=== PATIENT | male | born 1960 | race Caucasian/White ===

== ENCOUNTER 2018-02-22 16:46 | Inpatient (IN) | payer MEDICAID, OTHER ==
[~2018-02-22] VITALS: Ht 172.7 cm; Wt 106.6 kg
[2018-02-22 16:53] VITALS: BP 108/80
--- NOTE | 2018-02-22 17:00 | NUR ---
PATIENT PRESENTS TO ED WITH SUIDCIDAL IDEATION . PT STATES HE STARTED FEELING LIKE THIS 2 DAYS AGO, HAD A SPRAY APPLICATOR READY TO CUT HIMSELF BUT HE STOPPED. BROUGHT HIMSELF TO ER FOR HELP. DENIES N/V/D; SKIN IS PINK/WARM/DRY; AAOX4 WITH EVEN AND STEADY GAIT; LUNGS CLEAR BL; HR EVEN AND REGULAR; PT DENIES ANY FEVER, CP, SOB, OR COUGH AT THIS TIME; PATIENT STATES PAIN OF 0/10 AT THIS TIME; VSS; PATIENT POSITIONED FOR COMFORT; HOB ELEVATED; BEDRAILS UP X1; BED DOWN. ER MD MADE AWARE OF PT STATUS.
[2018-02-22] MEDS ORDERED: NACL 0.9% 1,000 ML IV ONE (17:10)
[2018-02-22 17:32] LABS: BASOPHILS # (AUTO) 0.1 K/uL (0.00-0.22); BASOPHILS % (AUTO) 0.8 % (0.0-2.0); EOSINOPHILS # (AUTO) 0.2 K/uL (0-0.4); EOSINOPHILS % (AUTO) 2.3 % (0.0-4.0); HEMATOCRIT 41.2 % (36-52); HEMOGLOBIN 13.9 g/dL (12.0-18.0); LYMPHOCYTES # (AUTO) 2.4 K/uL (2.0-11.5); LYMPHOCYTES % (AUTO) 30.1 % (20.5-51.1); MEAN CORPUSCULAR HEMOGLOBIN 30 pg (27-31); MEAN CORPUSCULAR HGB CONC 34 g/dL (33-37); MEAN CORPUSCULAR VOLUME 89.2 fL (80-94); MONOCYTES # (AUTO) 0.7 K/uL (0.8-1.0); MONOCYTES % (AUTO) 8.3 % (1.7-9.3); NEUTROPHILS # (AUTO) 4.7 K/uL (1.8-7.7); NEUTROPHILS % (AUTO) 58.5 % (42.2-75.2); PLATELET COUNT (AUTO) 181 K/uL (140-450); RED BLOOD CELL COUNT(AUTO) 4.61 MIL/uL (4.20-6.10); WHITE BLOOD COUNT (AUTO) 8.1 K/uL (4.8-10.8)
--- NOTE | 2018-02-22 17:40 | NUR ---
PATIENT ATE 90% OF DINNER TRAY. PATIENT IS CALM, NOT DISPLAYING SUICIDAL BEHAVIOR AT THIS TIME.
[2018-02-22 17:41] LABS: ANION GAP 13.9 (8-16); CARBON DIOXIDE 27.3 mmol/L (21-32); CHLORIDE 103 mmol/L (98-107); CREATININE 0.9 mg/dL (0.7-1.3); GFR ARICAN-AMERICAN 112 mL/min (>90); GLUCOSE 99 mg/dL (74-106); POTASSIUM 4.2 mmol/L (3.5-5.1); SODIUM SERUM 140 mmol/L (136-145); UREA NITROGEN, BLOOD 13 mg/dL (7-18)
[2018-02-22 17:48] LABS: ALBUMIN 3.4 g/dL (3.4-5.0); ASPARTATE AMINOTRANSFERASE 19 U/L (15-37); TOTAL BILIRUBIN 0.2 mg/dL (0.0-1.0)
[2018-02-22 17:51] LABS: ACETAMINOPHEN < 0.5 ug/ml (10-30); SALICYLATE < 2.8 mg/dL (2.8-20.0)
[2018-02-22 17:57] LABS: ACETONE, SERUM NEGATIVE (NEGATIVE)
[2018-02-22] MEDS ORDERED: ACETAMINOPHEN 325 MG TAB PO PRN (19:00)
[2018-02-22] MEDS ORDERED: ONDANSETRON 4 MG/2 ML VIAL IVP PRN (19:00)
[2018-02-22] MEDS ORDERED: LORazepam 2 MG/ML VIAL IVP PRN (19:00)
[2018-02-22] MEDS ORDERED: HYDROcodone/APAP 5/325 MG 1 TAB TAB PO PRN (19:00)
[2018-02-22] MEDS ORDERED: MORPHINE SULFATE 4 MG/ML SYR IVP PRN (19:00)
--- NOTE | 2018-02-22 19:16 | NUR ---
Patient will be admitted to care of DR. SONG. Admited to MED SURG. Will go to room 124 A. Belongings list completed. Report to JELENA.
--- NOTE | 2018-02-22 19:16 | NUR ---
PATIENT TAKEN TO THE FLOOR BY JELENA COURTNEY
[2018-02-22 19:25] VITALS: BP 115/79
--- NOTE | 2018-02-22 19:25 | NUR ---
ADMITTED AND 57M FROM ER . CAME BY WHEELCHAIR . AWAKE,ALERT AND ORIENTED X4. CAME DUE TO HEARING VOICES. HAD HX OF SUICIDAL IDEATION . PT IS AMBULATORY. ON MED -SURG. WITH HL ON THE LT AC#20. CLEAR AND PATENT. SKIN INTACT. ORIENTED TO HOSPITAL ROUTINES. BED ON LOW POSITION . CALL LIGHT AND URINAL PACED WITHIN EASY REACH. FREQUENT ROUNDS NEEDED FOR SAFETY . PLAN OF CARE DISCUSSED AND VERBALIZED UNDERSTANDING. SPECIMEN COLLECTED FOR MRSA NARES. WILL FOLLOW UP ADMIT ORDERS. WILL CONTINUE TO MONITOR.
--- NOTE | 2018-02-22 20:00 | NUR ---
ASKED PT IF HE HAS PLAN TO HURT HIMSELF , HE SAID NOT AT THIS TIME. AND HE SAID HIS GOAL UPON DISCHARGE IS TO TAKE ALL HIS MEDICATIONS ON TIME.
[2018-02-22] MEDS ORDERED: QUET400T PO (20:29)
[2018-02-22] MEDS ORDERED: CITA40TA13 PO (20:29)
[2018-02-22] MEDS ORDERED: BUS5 PO (20:29)
[2018-02-22] MEDS ORDERED: METO25TA PO (20:29)
[2018-02-22] MEDS ORDERED: ATOR40TA PO (20:29)
[2018-02-22] MEDS ORDERED: ASPI-1677 PO (20:29)
--- NOTE | 2018-02-22 21:20 | NUR ---
PT WANTS TO TAKE HIS MEDICATIONS THAT HE TAKES AT HOME. PAGED Terry FELIZ CALLED BACK AND HE SAID OK TO CONTINUE ALL HOME MEDICATIONS. DC THE PREVIOUS SEROQUEL ORDER AND FOLLOW WHAT PT TAKES AT HOME.
[2018-02-22 21:51] LABS: APPEARANCE,URINE CLEAR (CLEAR); BILIRUBIN,URINE NEGATIVE (NEGATIVE); BLOOD, URINE NEGATIVE (NEGATIVE); LEUKOCYTE ESTERASE ,URINE NEGATIVE (NEGATIVE); NITRITE, URINE NEGATIVE (NEGATIVE); UGLUCOSE NEGATIVE (NEGATIVE)
[2018-02-22 21:52] LABS: COLOR,URINE STRAW (YELLOW)
[2018-02-22] MEDS ORDERED: busPIRone 5 MG TAB PO SCH (22:00)
[2018-02-22] MEDS ORDERED: QUEtiapine FUMARATE 100 MG TAB PO SCH (22:00)
--- NOTE | 2018-02-22 22:06 | NUR ---
At this time pt is not a considered a psych pt. , clarified with charge nurse Ann BOWLES. advised to give Call Center a call back when pt becomes a psych pt.
[2018-02-22 22:59] LABS: BARBITURATE, URINE NEG. ng/ml (NEG <=200); BENZODIAZEPINE, URINE NEG. ng/mL (NEG <=200); CANNABINOID, URINE NEG. ng/mL (NEG <=50); COCAINE, URINE NEG. ng/mL (NEG <=300); OPIATE, URINE NEG. ng/mL (NEG <=2000); PHENCYCLIDINE SCREEN,URINE NEG. ng/mL (NEG <=25)
[2018-02-23 00:10] VITALS: BP 131/88
--- NOTE | 2018-02-23 00:30 | NUR ---
AMBULATED TO THE BATHROOM AND VOIDED. NO C/O ANY DISCOMFORT NOTED.
--- NOTE | 2018-02-23 00:45 | NUR ---
SCD MACHINE NOT NEEDED FOR PT IS AMBULATORY.
--- NOTE | 2018-02-23 02:30 | NUR ---
MADE ROUNDS. PT IS ASLEEP. NO S/S FO ANY DISCOMFORT NOTED. WILL CONTINUE TO MONITOR.
--- NOTE | 2018-02-23 03:30 | NUR ---
MADE ROUNDS. PT IS ASLEEP. NO S/S OF ANY DISCOMFORT NOTED. WILL CONTINUE TO MONITOR.
--- NOTE | 2018-02-23 05:20 | NUR ---
SITTING UP ON SIDE OF BED. BLOOD JUST DRAWN . WILL FOLLOW UP RESULTS.
[2018-02-23 05:49] LABS: BASOPHILS # (AUTO) 0.1 K/uL (0.00-0.22); BASOPHILS % (AUTO) 0.8 % (0.0-2.0); EOSINOPHILS # (AUTO) 0.3 K/uL (0-0.4); EOSINOPHILS % (AUTO) 3.7 % (0.0-4.0); HEMATOCRIT 42.9 % (36-52); HEMOGLOBIN 14.4 g/dL (12.0-18.0); LYMPHOCYTES # (AUTO) 2.4 K/uL (2.0-11.5); LYMPHOCYTES % (AUTO) 34.4 % (20.5-51.1); MEAN CORPUSCULAR HEMOGLOBIN 30 pg (27-31); MEAN CORPUSCULAR HGB CONC 34 g/dL (33-37); MEAN CORPUSCULAR VOLUME 90.4 fL (80-94); MONOCYTES # (AUTO) 0.6 K/uL (0.8-1.0); MONOCYTES % (AUTO) 8.5 % (1.7-9.3); NEUTROPHILS # (AUTO) 3.6 K/uL (1.8-7.7); NEUTROPHILS % (AUTO) 52.6 % (42.2-75.2); PLATELET COUNT (AUTO) 184 K/uL (140-450); RED BLOOD CELL COUNT(AUTO) 4.74 MIL/uL (4.20-6.10); RED CELL DISTRIBUTION WIDTH 14.4 % (11.6-13.7); WHITE BLOOD COUNT (AUTO) 6.9 K/uL (4.8-10.8)
[2018-02-23 06:05] LABS: ANION GAP 10.3 (8-16); CARBON DIOXIDE 30.2 mmol/L (21-32); POTASSIUM 4.5 mmol/L (3.5-5.1)
--- NOTE | 2018-02-23 06:32 | NUR ---
SLEPT WELL DURING THE NIGHT. HAVING COFFEE AT THIS TIME.
--- NOTE | 2018-02-23 07:28 | NUR ---
ENDORSED PT IN STABLE CONDITION TO AM NURSE.
--- NOTE | 2018-02-23 07:30 | NUR ---
RECEIVED PT ON BED AAOX4. NO SOB NOTED. NO C/O PAIN AT THIS TIME. NO SUICIDAL THOUGHTS AND NOT HEARING VOICES AT THIS TIME PER PT. PT IS PLEASANT AND WELL KEMPT IN APPEARANCE. IV TO LT AC PATENT AND INTACT. CHEST CLEAR. ABDOMEN SOFT, BOWEL SOUNDS. NO EDEMA NOTED. INSTRUCTED PT TO CALL FOR ASSISTANCE, CALL LIGHT WITHIN REACH. PT VERBALIZED UNDERSTANDING.
[2018-02-23 08:00] VITALS: BP 116/82
--- NOTE | 2018-02-23 08:44 | NUR ---
PAGED DR. ESPINOSA TO FOLLOW UP WITH PSYCH EVALUATION. PT'S FACE SHEET FAXED TO [facility], CONFIRMATION RECEIVED.
--- NOTE | 2018-02-23 08:59 | NUR ---
PATIENT HAS BEEN SCREENED AND CATEGORIZED MODERATE NUTRITION RISK. PATIENT WILL BE SEEN WITHIN 3-5 DAYS OF ADMISSION. 02/25/18 02/27/[address]
[2018-02-23] MEDS ORDERED: QUEtiapine FUMARATE 25 MG TAB PO SCH (09:00)
[2018-02-23] MEDS: busPIRone 5 MG TAB PO SCH ×2 (09:33→20:36)
[2018-02-23] MEDS: ATORVASTATIN 20 MG TAB PO SCH (09:33)
[2018-02-23] MEDS: CITALOPRAM 20 MG TAB PO SCH (09:33)
[2018-02-23] MEDS: METOPROLOL 50 MG TAB PO SCH ×2 (09:34→20:36)
[2018-02-23] MEDS: ECOTRIN 81 MG TABEC PO SCH (09:34)
--- NOTE | 2018-02-23 12:30 | NUR ---
PT CONSUMED 100% ON BREAKFAST AND LUNCH. FOOD TOLERATED WELL.
[2018-02-23 16:00] VITALS: BP 118/76
--- NOTE | 2018-02-23 16:30 | NUR ---
DR. LAW HERE TO SEE PT.
--- NOTE | 2018-02-23 17:20 | NUR ---
PSYCH EVALUATED PT. 5150 HOLD ISSUED. SITTER PROVIDED.
--- NOTE | 2018-02-23 19:15 | NUR ---
SPOKE WITH ART FROM [facility] CALL SOLANO REGARDING TO LATEST 5150 HOLD ORDER BY PSYCH, FAXED PT'S FACE SHEET AND 5150 HOLD ORDER. FAX CONFIRMATION ATTACHED TO CHART.
--- NOTE | 2018-02-23 19:30 | NUR ---
PT AWAKE. NO SOB NOTED. NO COMPLAINTS MADE, PT IS PLEASANT. NO SUICIDAL THOUGHTS PER PT AT THIS TIME. WITH 1:1 SITTER AT THE BEDSIDE. ENDORSED TO NEXT SHIFT NURSE FOR CONTINUITY OF CARE.
--- NOTE | 2018-02-23 19:30 | NUR ---
ASSUMED CARE OF PATIENT, AWAKE, ALERT AND ORIENTED. MOVE TO 109B AMBULATORY ACCOMPANIED BY SITTER. NO COMPLAINS. CALL LIGHT WITHIN REACH.
--- NOTE | 2018-02-23 20:00 | NUR ---
PLAN OF CARE DISCUSSED WITH PATIENT, VERBALIZED UNDERSTANDING WELL. SITTER 1:1 AT BEDSIDE AT ALL TIMES. CALL LIGHT WITHIN REACH.
--- NOTE | 2018-02-23 20:03 | NUR ---
Packet sent to following facilities ,[facility] ,[facility], [facility] , [facility], and [facility] at this time there are no vacancy , will continue to call for placement.
[2018-02-23] MEDS: QUEtiapine FUMARATE 100 MG TAB PO SCH (20:36)
[2018-02-23 23:31] VITALS: BP 116/78
--- NOTE | 2018-02-23 23:32 | NUR ---
SLEEPING WELL. NO COMPLAINS. CALL LIGHT WITHIN REACH. VITAL SIGNS STABLE. AFEBRILE.
--- NOTE | 2018-02-24 02:11 | NUR ---
There are still no vacancy , will continue to call facilities for placement thru the shift.
--- NOTE | 2018-02-24 04:05 | NUR ---
AWAKE, PULLED OUT IV ACCESS. RESTLESS. SITTER AT BEDSIDE.
--- NOTE | 2018-02-24 05:10 | NUR ---
still no beds available at this time , will report to on coming shift pt needs placement.
[2018-02-24 06:37] LABS: BASOPHILS # (AUTO) 0.1 K/uL (0.00-0.22); EOSINOPHILS # (AUTO) 0.3 K/uL (0-0.4); HEMOGLOBIN 14.2 g/dL (12.0-18.0); LYMPHOCYTES # (AUTO) 2.4 K/uL (2.0-11.5); MEAN CORPUSCULAR HEMOGLOBIN 30 pg (27-31); MEAN CORPUSCULAR HGB CONC 34 g/dL (33-37); MEAN CORPUSCULAR VOLUME 90.1 fL (80-94); MONOCYTES # (AUTO) 0.6 K/uL (0.8-1.0); MONOCYTES % (AUTO) 8.7 % (1.7-9.3); NEUTROPHILS # (AUTO) 3.6 K/uL (1.8-7.7); NEUTROPHILS % (AUTO) 52.3 % (42.2-75.2); PLATELET COUNT (AUTO) 185 K/uL (140-450); RED BLOOD CELL COUNT(AUTO) 4.66 MIL/uL (4.20-6.10); RED CELL DISTRIBUTION WIDTH 14.3 % (11.6-13.7); WHITE BLOOD COUNT (AUTO) 6.9 K/uL (4.8-10.8)
[2018-02-24 06:58] LABS: ANION GAP 10.2 (8-16); CARBON DIOXIDE 33.2 mmol/L (21-32); POTASSIUM 4.4 mmol/L (3.5-5.1)
--- NOTE | 2018-02-24 07:20 | NUR ---
ENDORSED CARE AT BEDSIDE WITH ARNOLDO RN, PATIENT IN STABLE CONDITION.
[2018-02-24 08:00] VITALS: BP 118/76
--- NOTE | 2018-02-24 08:00 | NUR ---
PATIENT AWAKE, ALERT, EATING BREAKFAST. RESPIRATION EVEN, UNLABOR ON ROOM AIR. SKIN DRY AND WARM. IV PATENT AND INTACT. DENIED SUICIDAL IDEA. PATIENT STATED HE STILL HAS AUDIO HALLUCINATION, THAT THE VOICE TOLD ME TO START FIRE AND KILL HIMSELF. 1:1 SITTER IS ENSURED. PLAN OF CARE WAS DISCUSSED WITH PATIENT.
[2018-02-24] MEDS: METOPROLOL 50 MG TAB PO SCH ×2 (08:40→20:40)
[2018-02-24] MEDS: busPIRone 5 MG TAB PO SCH ×2 (08:41→20:41)
[2018-02-24] MEDS: ATORVASTATIN 20 MG TAB PO SCH (08:41)
[2018-02-24] MEDS: CITALOPRAM 20 MG TAB PO SCH (08:41)
[2018-02-24] MEDS: ECOTRIN 81 MG TABEC PO SCH (08:42)
--- NOTE | 2018-02-24 11:57 | NUR ---
PATIENT AWAKE, ALERT. RESPIRATION EVEN, UNLABOR ON ROOM AIR. NO DISTRESS NOTED AT THIS TIME. 1:1 SITTER ENSURED.
--- NOTE | 2018-02-24 14:32 | NUR ---
PATIENT IS SLEEPING COMFORTABLY. RESPIRATION EVEN, UNLABOR ON ROOM AIR. NO DISTRESS NOTED AT THIS TIME. 1:1 SITTER ENSURED
[2018-02-24 16:00] VITALS: BP 105/63
--- NOTE | 2018-02-24 16:00 | NUR ---
PATIENT WAS SLEEPING COMFORTABLY, EASILY AROUSABLE BY NAME. RESPIRATION EVEN, UNLABOR ON ROOM AIR. DENIED SUICIDAL THOUGHT. NO DISTRESS NOTED AT THIS TIME. VS IS STABLE. 1:1 SITTER ENSURED
--- NOTE | 2018-02-24 17:48 | NUR ---
PATIENT SLEEPING COMFORTABLY. RESPIRATION EVEN, UNLABOR ON ROOM AIR. NO DISTRESS NOTED AT THIS TIME. 1:1 SITTER ENSURED
--- NOTE | 2018-02-24 19:00 | NUR ---
ASSUMED ROLE OF 1:1 SITTER, PATIENT SLEEPING COMFORTABLY IN BED.
--- NOTE | 2018-02-24 19:21 | NUR ---
ENDORSEMENT GIVEN TO THE [place] DIRECTOR NURSE. PATIENT IS STABLE AT THIS TIME
--- NOTE | 2018-02-24 19:22 | NUR ---
RECD. RESTING IN BED, A/OX4. RESPIRATION EVEN AND UNLABORED. IV SALINE LOCK AT THE LEFT HAND G20, PATENT AND INTACT. STATED HE IS STILL HEARING VOICES OCCASIONALLY TELLING TO KILL/HURT SELF. PLAN OF CARE FOR THE SHIFT DISCUSSED. VERBALIZED UNDERSTANDING. DENIES PAIN 0/10. WILL CONTINUE TO MONITOR BEHAVIOR AND ENSURE SAFETY BEING THE NURSE AND SITTER FOR THE PATIENT.
--- NOTE | 2018-02-24 20:00 | NUR ---
Patient's Plan of Care was discussed and reviewed with SITE PROMOTION AGENT: QUINCY GUEVARA.
--- NOTE | 2018-02-24 20:20 | NUR ---
SITTING IN BED, HAVING COFFEE AT THIS TIME.
[2018-02-24] MEDS: QUEtiapine FUMARATE 100 MG TAB PO SCH (20:40)
--- NOTE | 2018-02-24 20:40 | NUR ---
DUE PO MEDICATIONS GIVEN, COOPERATIVE.
--- NOTE | 2018-02-24 21:01 | NUR ---
Placement packets have been resent to [facility], [facility], [facility], [facility], and [facility].
--- NOTE | 2018-02-24 21:30 | NUR ---
Fabio Brown at [facility] unable to accept patient
--- NOTE | 2018-02-24 21:35 | NUR ---
SLEEPING COMFORTABLY IN BED.
--- NOTE | 2018-02-24 21:45 | NUR ---
AWAKE, SITTING IN BED.
--- NOTE | 2018-02-24 22:00 | NUR ---
WENT BACK T0 SLEEP.
--- NOTE | 2018-02-24 23:00 | NUR ---
STILL SLEEPING IN BED, SNORING.
--- NOTE | 2018-02-24 23:35 | NUR ---
INFORMED DR. Terry SONG THAT CHARGE NURSE KEANU WAS INFORMED BY CORPORATE STAFF, PATIENT HAS ALREADY A BED AVAILABLE AT [facility] AND CAN BE TRANSFERRED TONIGHT. ORDERED TO DISCHARGED PATIENT.
--- NOTE | 2018-02-24 23:45 | NUR ---
CHENTE FROM [facility] CALLED EARLIER AND ASKED SOME INFORMATION FROM PT.GIVEN TO HIM.HE SAID THEY HAVE BED AND HE WILL TALKED WITH MD AND THEN CALL ME BACK.HE CALLED BACK.PT WILL GO TO [address] .HE ASKED TO FAX UDS RESULT TO FAX # [phone].IT DONE ALSO ASKED TO CALL [phone] AND GIVE THEM REPORT.INFORMED QUINCY LOCK PT.'S NURSE.
[2018-02-24 23:52] VITALS: BP 92/57
[2018-02-24 23:55] VITALS: BP 92/57
--- NOTE | 2018-02-25 00:20 | NUR ---
REPORT GIVEN TO JELENA BARRETO OF [facility].
--- NOTE | 2018-02-25 00:30 | NUR ---
PATIENT INFORMED OF [place] [facility]CHARGE INSTRUCTIONS GIVEN. VERBALIZED UNDERSTANDING. IV DISCONTINUED.
--- NOTE | 2018-02-25 00:45 | NUR ---
REPORT GIVEN TO AMBULANCE PERSONNEL OF [facility]. PATIENT SIGNS ALL DISCHARGE PAPERS AND BELONGINGS CHECKLIST.
--- NOTE | 2018-02-25 01:00 | NUR ---
TAKEN TO ER PARKING IN STABLE CONDITION VIA GURNEY ACCOMPANIED BY [facility] PERSONNEL FOR TRANSFER TO [facility]. GRAVITY METER OBSERVER JIMMY HENRIQUEZ.
== END 2018-02-25 01:00 | disposition designated cancer center or children's hospital (05) | DRG 750 ==
LOC: MED 16:46 → MTU 18:20
PROVIDERS: ADMIT Preventive Medicine Preventive Medicine/Occupational Environmental Medicine; ATTEND Preventive Medicine Preventive Medicine/Occupational Environmental Medicine
DX: F25.1 Schizoaffective disorder, depressive type (principal); I11.0 Hypertensive heart disease with heart failure; I50.9 Heart failure, unspecified; R45.851 Suicidal ideations; F10.10 Alcohol abuse, uncomplicated; F17.210 Nicotine dependence, cigarettes, uncomplicated; F32.9 Major depressive disorder, single episode, unspecified; R73.9 Hyperglycemia, unspecified; E78.00 Pure hypercholesterolemia, unspecified; Z59.0 Homelessness
CPT/HCPCS: 36415; 80048; 80053; 80305; 81003; 82009; 85025; 87081; 96360; 99285; G0480; G0482; J2060; J7030